=== PATIENT | female | born 1950 | race Caucasian/White ===

== ENCOUNTER 2021-11-06 10:37 | Day surgery (SDC) | payer MEDICARE, OTHER ==
[2021-11-02 11:57] LABS: BASOPHILS % (AUTO) 0.4 % (0.0-5.0); CREATININE 0.8 mg/dL (0.5-1.5); LYMPHOCYTES % (AUTO) 13.7 % (21.0-51.0); MEAN CORPUSCULAR HEMOGLOBIN 37.7 pg (27.0-33.0); MEAN CORPUSCULAR HGB CONC 33.4 g/dL (32.0-36.0); MEAN CORPUSCULAR VOLUME 112.9 fL (79-99); NEUTROPHILS % (AUTO) 72.9 % (40.0-77.0); PLATELET COUNT (AUTO) 97 K/uL (130-400); POTASSIUM 3.9 mmol/L (3.5-5.1); RED CELL DISTRIBUTION WIDTH 14.5 % (11.0-15.5); WHITE BLOOD COUNT (AUTO) 2.7 K/uL (4.8-10.8)
[2021-11-02 12:00] LABS: INR 0.96 (0.85-1.15); PROTHROMBIN TIME 10.5 SEC (9.6-11.6)
[2021-11-02 12:02] LABS: ALBUMIN 3.4 g/dL (3.5-5.0); BILIRUBIN,TOTAL 0.6 mg/dL (0.2-1.0); TOTAL PROTEIN, SERUM 8.8 g/dL (6.0-8.3)
[2021-11-02 13:10] LABS: EOSINOPHILS % (MANUAL) 1 % (1-6); LYMPHOCYTES % (MANUAL) 25 % (22-44); MONOCYTES % (MANUAL) 4 % (2-9); SEGMENTED NEUTROPHILS % 70 % (40-70)
[2021-11-02 13:20] LABS: MAN.DIFF COMMENT-IMPRESSION MANUAL DIFFERENTIAL
[~2021-11-06] VITALS: Ht 160 cm; Wt 53.1 kg
[2021-11-06] VITALS (8 sets, daily range): BP systolic 128–159; BP diastolic 67–99
[~2021-11-06 10:37] MED LIST: ASCO100031 PO; ASPI-1443 PO; AZAT50TA17 PO; BUPR100T13 PO; CALC-909 PO; CARBXR100 PO; CELE-84 PO; CYAN-35 PO; FOLIC ACID PO; GABA300C PO; LACT10SO5 PO; PANT40TA PO; PROP20TA7 PO; SPIR25TA6 PO
[2021-11-06] MEDS ORDERED: 0.9%NACL 1000ML 1,000 ML IV ONE (11:07)
[2021-11-06] MEDS ORDERED: PROPOFOL 10 MG/ML 20ML VIAL IV ONE (12:40)
[2021-11-06] MEDS ORDERED: LIDOCAINE HCL 400MG/20ML VIAL ONE (12:40)
== END 2021-11-06 13:25 | disposition home or self-care (01) ==
LOC: ENDO 10:37 → DAH 10:37 → ENDO 13:25
PROVIDERS: ATTEND Internal Medicine Gastroenterology
DX: K74.60 Unspecified cirrhosis of liver (principal); I85.11 Secondary esophageal varices with bleeding; K44.9 Diaphragmatic hernia without obstruction or gangrene; K29.00 Acute gastritis without bleeding; I25.10 Atherosclerotic heart disease of native coronary artery without angina pectoris; E78.5 Hyperlipidemia, unspecified; K76.6 Portal hypertension; K31.89 Other diseases of stomach and duodenum; Z20.822 Contact with and (suspected) exposure to COVID-19; Z79.899 Other long term (current) drug therapy
CPT/HCPCS: 36415; 43244; 80053; 82105; 82140; 85025; 85610; 87635; A4215 ×2; A4221; A4222; A4223; A4606; A4620; A4663; J2704; J3490; J7030; 93005